=== PATIENT | female | born 1985 | race Caucasian/White ===

== ENCOUNTER 2022-04-02 18:42 | Emergency (ER) | payer OTHER ==
[2022-04-02 18:57] VITALS: BP 156/98; PULSE 100; RESP 18; TEMP 98; BMI 27.4
[2022-04-02] MEDS ORDERED: KETOROLAC TROMETHAMINE 15 MG/ML VIAL IVPUSH ONE (20:08)
[2022-04-02] MEDS ORDERED: KETOROLAC TROMETHAMINE 15 MG/ML VIAL ONE (20:20)
[2022-04-02] MEDS ORDERED: KETOROLAC TROMETHAMINE 15 MG/ML VIAL IM ONE (20:20)
== END 2022-04-02 22:51 | disposition home or self-care (01) ==
LOC: JERFT 18:42
PROC: 3E0233Z Introduction of Anti-inflammatory into Muscle, Percutaneous Approach (ICD-10-PCS; principal; 2022-04-02)
DX: H60.501 Unspecified acute noninfective otitis externa, right ear (principal)
CPT/HCPCS: 70480-TC; 84703; 99284-25

== ENCOUNTER 2022-09-05 06:17 | Emergency (ER) | payer OTHER ==
[2022-09-05 06:36] VITALS: BP 147/95; PULSE 78; RESP 18; TEMP 98.1; BMI 31.9
== END 2022-09-05 08:31 | disposition home or self-care (01) ==
LOC: JER 06:17
DX: H10.32 Unspecified acute conjunctivitis, left eye (principal); H04.202 Unspecified epiphora, left side; H02.846 Edema of left eye, unspecified eyelid
CPT/HCPCS: 99283-25